=== PATIENT | female | born 1955 | race Caucasian/White ===

== ENCOUNTER 2021-04-28 19:59 | Inpatient (IN) | payer MEDICARE, OTHER ==
[2021-04-28] MEDS ORDERED: SODIUM CHLORIDE 0.9% 1,000 ML IV STA (21:40)
[2021-04-28] MEDS ORDERED: PROCHLORPERAZINE INJ 10 MG/2 ML VIAL IVP STA (21:40)
[2021-04-28] MEDS ORDERED: ACETAMINOPHEN TAB 500 MG TAB PO STA (21:40)
[2021-04-28] MEDS ORDERED: DEXAMETHASONE SOD PHOSPHATE 10 MG/ML 1 ML VIAL IVP STA (21:40)
[2021-04-28] MEDS ORDERED: KETOROLAC 15 MG/ML 1 ML VIAL IVP STA (21:40)
[2021-04-28] MEDS ORDERED: SODIUM CHLORIDE 0.9% 500 ML 500 ML IV STA (21:40)
--- NOTE | 2021-04-28 21:42 | ED ---
Recheck HPI - General Chief Complaint: Weakness Stated Complaint: covid+ Time Seen by Provider: 04/28/21 21:09 Source: patient, RN notes reviewed, old records reviewed Mode of arrival: ambulatory Limitations: no limitations - History of Present Illness Initial Comments: This is a 65-year-old female to the emergency department for evaluation, patient [place] of no chest pains here for evaluation regards to weakness nausea vomiting diarrhea positive coronavirus. Patient states she is continuously getting worse, unable to get out of bed unable to complete activities of daily living. Significant shortness of breath especially with activity. Patient has otherwise no recent travel history MD Complaint: abnormal lab (positive for coronavirus) -: days(s) (6) Returns Today for: Called Because of Abnormal Lab/Test, persistent/worsening pain related to initial visit Symptoms Since Prior Visit: worsening pain, fever Context: other (worsening symptoms) Associated Symptoms: fever, chills, chest pain, shortness of breath, malaise, nausea, abdominal pain Treatments Prior to Arrival: other (none) - Related Data Home Medications Medication Instructions Recorded Confirmed ondansetron HCL [Zofran] 8 mg PO TID PRN 04/28/21 04/28/21 Allergies Allergy/AdvReac Type Severity Reaction Status Date / Time bupropion [From Wellbutrin] Allergy Rash/Hives Verified 04/28/21 22:45 promethazine HCl Allergy Hallucinati Verified 04/28/21 22:45 [From Phenergan] ons codeine phosphate AdvReac Itching Verified 04/28/21 22:45 [From Tylenol-Codeine #3] Review of Systems ROS Statement: Those systems with pertinent positive or pertinent negative responses have been documented in the HPI. ROS Other: All systems not noted in ROS Statement are negative. Past Medical History Past Medical History: Cancer, Osteoarthritis (OA) Additional Past Medical History / Comment(s): MIGRAINE HEADACHE,RIGHT KIDNEY CANCER,bronchitis, states "knee gave out and fell face down on cement-face healed",incontinet urine, Graves diease History of Any Multi-Drug Resistant Organisms: None Reported Past Surgical History: Bladder Surgery, Hysterectomy, Orthopedic Surgery Additional Past Surgical History / Comment(s): D&C, LAPAROSCOPIC EXAM, arthroscopic knee surg., right nephrectomy.bladder susp with later repair, 5 16-16 TOTAL RT KNEE. Past Anesthesia/Blood Transfusion Reactions: Previous Problems w/ Anesthesia Additional Past Anesthesia/Blood Transfusion Reaction / Comment(s): states "very low BP with anesthesia and has a hard time waking up" Past Psychological History: No Psychological Hx Reported Smoking Status: Former smoker Past Alcohol Use History: Rare Past Drug Use History: None Reported - Past Family History Sister(s) Additional Family Medical History / Comment(s): MS Mother Family Medical History: Cancer Father Family Medical History: Cancer General Exam General appearance: alert, anxious, lethargic, in distress Head exam: Present: atraumatic, normocephalic, normal inspection Eye exam: Present: normal appearance, PERRL, EOMI. Absent: scleral icterus, conjunctival injection, periorbital swelling ENT exam: Present: normal exam, mucous membranes moist Neck exam: Present: normal inspection. Absent: tenderness, meningismus, lymphadenopathy Respiratory exam: Present: normal lung sounds bilaterally. Absent: respiratory distress, wheezes, rales, rhonchi, stridor Cardiovascular Exam: Present: regular rate, normal rhythm, normal heart sounds. Absent: systolic murmur, diastolic murmur, rubs, gallop, clicks GI/Abdominal exam: Present: soft, normal bowel sounds. Absent: distended, tenderness, guarding, rebound, rigid Extremities exam: Present: normal inspection, full ROM, normal capillary refill. Absent: tenderness, pedal edema, joint swelling, calf tenderness Back exam: Present: normal inspection Neurological exam: Present: alert, oriented X3, CN II-XII intact Psychiatric exam: Present: normal affect, normal mood Skin exam: Present: warm, dry, intact, normal color. Absent: rash Course Vital Signs 04/28/21 04/28/21 20:41 21:30 Temperature 101.5 F H Pulse Rate 91 Respiratory 15 18 Rate Blood Pressure 102/69 O2 Sat by Pulse 93 L Oximetry - Reevaluation(s) Reevaluation #1: 04/28/21 23:51 medical record is reviewed Reevaluation #2: 04/28/21 23:52 patient has no improvement in symptoms here in the ER Reevaluation #3: 04/28/21 23:52 patient be admitted for further supportive care - Consultations Consultation #1: spoke w Dr Borges is ok for admission Medical Decision Making - Medical Decision Making 65 female to be admitted for worsening coronavirus symptoms. Shortness of breath hypoxia here in the ER in the mid to upper 80s. At rest, patient has no chest pain, and has increased nausea vomiting and diarrhea - Lab Data Result diagrams: 04/28/21 22:16 04/28/21 22:16 Lab Results 04/28/21 04/28/21 04/28/21 Range/Units 22:16 22:16 22:16 WBC 6.3 (3.8-10.6) k/uL RBC 4.48 (3.80-5.40) m/uL Hgb 15.0 (11.4-16.0) gm/dL Hct 43.1 (34.0-46.0) % MCV 96.1 (80.0-100.0) fL MCH 33.5 (25.0-35.0) pg MCHC 34.8 (31.0-37.0) g/dL RDW 13.5 (11.5-15.5) % Plt Count 175 (150-450) k/uL MPV 8.6 Neutrophils % 85 % Lymphocytes % 9 % Monocytes % 4 % Eosinophils % 0 % Basophils % 0 % Neutrophils # 5.3 (1.3-7.7) k/uL Lymphocytes # 0.6 L (1.0-4.8) k/uL Monocytes # 0.3 (0-1.0) k/uL Eosinophils # 0.0 (0-0.7) k/uL Basophils # 0.0 (0-0.2) k/uL PT 10.1 (9.0-12.0) sec INR 0.9 (<1.2) APTT 26.3 (22.0-30.0) sec Sodium 132 L (137-145) mmol/L Potassium 3.7 (3.5-5.1) mmol/L Chloride 98 (98-107) mmol/L Carbon Dioxide 22 (22-30) mmol/L Anion Gap 12 mmol/L BUN 14 (7-17) mg/dL Creatinine 1.01 (0.52-1.04) mg/dL Est GFR (CKD-EPI)AfAm 69 (>60 ml/min/1.73 sqM) Est GFR (CKD-EPI)NonAf 60 (>60 ml/min/1.73 sqM) Glucose 98 (74-99) mg/dL Calcium 8.7 (8.4-10.2) mg/dL Magnesium 1.9 (1.6-2.3) mg/dL Total Bilirubin 0.6 (0.2-1.3) mg/dL AST 58 H (14-36) U/L ALT 36 H (4-34) U/L Alkaline Phosphatase 73 (38-126) U/L Lactate Dehydrogenase 791 H (313-618) U/L C-Reactive Protein 5.9 H (<1.0) mg/dL Total Protein 6.7 (6.3-8.2) g/dL Albumin 3.8 (3.5-5.0) g/dL - EKG Data -: EKG Interpreted by Me (EKG shows sinus rhythm 84, CA 160 QRS 92 QTC 427) - Radiology Data Radiology results: report reviewed (CXR is pending, COVID), image reviewed Disposition Clinical Impression: Coronavirus infection, COVID-19, Hypoxia, Dehydration, Weakness, Nausea and vo miting Disposition: ADMITTED IP TO THIS [facility] Condition: Fair Is patient prescribed a controlled substance at d/c from ED?: No Referrals: Cyndie Vee DO [Primary Care Provider] - 1-2 days
[2021-04-28 22:36] LABS: Basophils % (A) 0 %; Eosinophils % (A) 0 %; HCT 43.1 % (34.0-46.0); Lymphocytes # (A) 0.6 k/uL (1.0-4.8); Lymphocytes % (A) 9 %; MCH 33.5 pg (25.0-35.0); MCHC 34.8 g/dL (31.0-37.0); MCV 96.1 fL (80.0-100.0); Mean Platelet Volume 8.6; Monocytes # (A) 0.3 k/uL (0-1.0); Monocytes % (A) 4 %; Neutrophils # (A) 5.3 k/uL (1.3-7.7); Neutrophils % (A) 85 %; Platelet Count 175 k/uL (150-450); RBC 4.48 m/uL (3.80-5.40); RDW 13.5 % (11.5-15.5); WBC 6.3 k/uL (3.8-10.6)
[2021-04-28 22:56] LABS: Albumin 3.8 g/dL (3.5-5.0); C Reactive Protein 5.9 mg/dL (<1.0); Calcium 8.7 mg/dL (8.4-10.2); INR 0.9 (<1.2); Magnesium 1.9 mg/dL (1.6-2.3); Partial Thromboplastin Time 26.3 sec (22.0-30.0); Potassium 3.7 mmol/L (3.5-5.1); Prothrombin Time 10.1 sec (9.0-12.0); Total Bilirubin 0.6 mg/dL (0.2-1.3); Total Protein 6.7 g/dL (6.3-8.2)
[2021-04-28] MEDS: SODIUM CHLORIDE 0.9% 1,000 ML IV SCH (23:47)
--- NOTE | 2021-04-29 00:19 | XR ---
EXAMINATION TYPE: XR chest 1V portable DATE OF EXAM: 04/28/2021 COMPARISON: NONE HISTORY: Cough TECHNIQUE: Single view FINDINGS: There is some mild airspace infiltrate in the mid and lower lung field in the left lower lo be. There is also a small somewhat rounded 3 cm infiltrate right lower lobe. Heart and mediastinum ar e normal. There is no pleural effusion. There is no heart failure. There are chest leads. IMPRESSION: There are small patches of bilateral pneumonia. Normal heart.
[2021-04-29] MEDS ORDERED: MORPHINE SULFATE 4 MG/ML SYRINGE IV PRN (00:23)
[2021-04-29] MEDS ORDERED: NALOXONE 0.4 MG/ML 1 ML VIAL IV PRN (00:23)
[2021-04-29] MEDS ORDERED: IBUPROFEN 400 MG TAB PO PRN (00:23)
[2021-04-29] MEDS ORDERED: ACETAMINOPHEN TAB 325 MG TAB PO PRN (00:23)
[2021-04-29] MEDS: SODIUM CHLORIDE 0.9% 1,000 ML IV SCH ×3 (06:34→20:50)
[2021-04-29] MEDS: ENOXAPARIN 40 MG/0.4 ML SYRINGE SQ SCH (09:20)
[2021-04-29] MEDS ORDERED: LOPERAMIDE 2 MG CAP PO PRN (12:12)
[2021-04-29] MEDS ORDERED: MELATONIN 3 MG TABLET PO PRN (12:12)
[2021-04-29] MEDS ORDERED: LACTULOSE 20 GM/30 ML CUP PO PRN (12:12)
[2021-04-29] MEDS ORDERED: LORazepam 0.5 MG TAB PO PRN (12:12)
[2021-04-29] MEDS ORDERED: CALCIUM CARBONATE 500 MG CHEWABLE PO PRN (12:12)
[2021-04-29] MEDS: ASCORBIC ACID 500 MG TAB PO SCH (12:30)
[2021-04-29] MEDS: CHOLECALCIFEROL 125 MCG (5000 IU) TABLET PO SCH (12:30)
[2021-04-29] MEDS: ZINC SULFATE 220 MG CAP PO SCH (12:31)
--- NOTE | 2021-04-29 19:55 | P.HPIM ---
History of Present Illness H&P Date: 04/29/21 Chief Complaint: Weak and tired This is a pleasant 65-year-old patient who follows with Dr. Birch. Chronic stable medical condition includes osteoarthritis, migraines, right kidney cancer with nephrectomy, urinary incontinence, Graves' disease. Patient started off with diarrhea last Saturday. Averaging about 4-5 per day. Appetite poor. Had some headache. No loss of smell or taste. She progressively got worse. Not even able to get out of bed. Short of breath with activity. Tested positive for COVID-19. No fever no chills. Tired rundown Review of systems: GEN.: Tired decreased appetite EYES: None HEENT: None NECK: None RESPIRATORY: [Short of breath with activity CARDIOVASCULAR: None GASTROINTESTINAL: As above GENITOURINARY: None MUSCULOSKELETAL: Joint pains LYMPHATICS: None HEMATOLOGICAL: None PSYCHIATRY: None NEUROLOGICAL: None INVESTIGATIONS, reviewed in the clinical context: White count 6.3 hemoglobin 15 platelets 175 decreased lymphocyte sodium 132 potassium 3.7 creatinine 1.01 AST 58 ALT 36 CRP 5.9 EKG tracing personally reviewed by me-normal sinus rhythm. ST segment depression. Chest x-ray film personally reviewed by me-peripheral infiltrate Assessment and plan: -Acute COVID 19 pneumonitis symptoms starting about 7 days ago. Vitamin C, vitamin D, zinc. Subcu Lovenox -Mild hypoxic respiratory failure. Patient's pulse ox did drop down to 92% Dexamethasone 6 mg a day. 2 L nasal cannula -Acute medical asthenia from diarrhea IV fluids -Acute diarrhea secondary to COVID-19 Imodium when necessary. Metamucil -Hyponatremia from decreased solute intake Encourage oral intake. Add Ensure -Primary osteoarthritis Tylenol as needed -Chronic urinary stress incontinence -Right nephrectomy with a history of kidney cancer IV fluids. Dexamethasone. Subcu Lovenox. Metamucil. And showed. Care was discussed with the patient and questions answered. Oxygen supplementation Given the complexity and severity of patient's condition expect the patient to be in the hospital at least for 2 overnights Past Medical History Past Medical History: Cancer, Osteoarthritis (OA) Additional Past Medical History / Comment(s): MIGRAINE HEADACHE,RIGHT KIDNEY CANCER,bronchitis, states "knee gave out and fell face down on cement-face healed",incontinet urine, Graves diease History of Any Multi-Drug Resistant Organisms: None Reported Past Surgical History: Bladder Surgery, Hysterectomy, Orthopedic Surgery Additional Past Surgical History / Comment(s): D&C, LAPAROSCOPIC EXAM, arthroscopic knee surg., right nephrectomy.bladder susp with later repair, 5-16-16 TOTAL RT KNEE. Past Anesthesia/Blood Transfusion Reactions: Previous Problems w/ Anesthesia Additional Past Anesthesia/Blood Transfusion Reaction / Comment(s): states "very low BP with anesthesia and has a hard time waking up" Past Psychological History: No Psychological Hx Reported Smoking Status: Never smoker Past Alcohol Use History: Rare Additional Past Alcohol Use History / Comment(s): STATED STARTED SMOKING AT AGE 13,STOPPED FROM 1981 TOLL 2009 THEN RESTARTED ,SMOKED 1PPD. Past Drug Use History: None Reported - Past Family History Sister(s) Additional Family Medical History / Comment(s): MS Mother Family Medical History: Cancer Father Family Medical History: Cancer Medications and Allergies Home Medications Medication Instructions Recorded Confirmed Type ondansetron HCL [Zofran] 8 mg PO TID PRN 04/28/21 04/28/21 History Allergies Allergy/AdvReac Type Severity Reaction Status Date / Time bupropion [From Wellbutrin] Allergy Rash/Hives Verified 04/28/21 22:45 promethazine HCl Allergy Hallucinati Verified 04/28/21 22:45 [From Phenergan] ons codeine phosphate AdvReac Itching Verified 04/28/21 22:45 [From Tylenol-Codeine #3] Physical Exam Vitals: Vital Signs Temp Pulse Pulse Resp BP BP Pulse Ox 04/29/21 08:59 97.5 F L 53 L 17 98/59 92 L 04/29/21 06:00 52 L 17 101/67 95 04/29/21 01:44 95 04/29/21 01:18 98 F 78 16 114/70 95 04/28/21 21:30 18 04/28/21 20:41 101.5 F H 91 15 102/69 93 L Intake and Output 04/28/21 04/29/21 04/29/21 22:59 06:59 14:59 Intake Total 650 Balance 650 Intake: Intake, IV Titration 650 Amount Sodium Chloride 0.9% 1, 650 000 ml @ 130 mls/hr IV . Q7H42M SINDI Rx#:[id number] Other: # Voids 2 Weight 84.822 kg 84.822 kg Results CBC & Chem 7: 04/28/21 22:16 04/28/21 22:16 Labs: Abnormal Lab Results - Last 24 Hours (Table) 04/28/21 04/28/21 Range/Units 22:16 22:16 Lymphocytes # 0.6 L (1.0-4.8) k/uL Sodium 132 L (137-145) mmol/L AST 58 H (14-36) U/L ALT 36 H (4-34) U/L Lactate Dehydrogenase 791 H (313-618) U/L C-Reactive Protein 5.9 H (<1.0) mg/dL Thrombosis Risk Factor Assmnt - Choose All That Apply Any of the Below Risk Factors Present?: Yes Each Factor Represents 1 point: Obesity (BMI >25) Other Risk Factors: Yes Each Risk Factor Represents 2 Points: Age 61-74 years Other congenital or acquired thrombophilia - If yes, enter type in comment: No Thrombosis Risk Factor Assessment Total Risk Factor Score: 3 Thrombosis Risk Factor Assessment Level: Moderate Risk
[2021-04-29] MEDS: PSYLLIUM HUSK 100% 6 GM PACKET PO SCH (21:00)
[2021-04-30] MEDS: SODIUM CHLORIDE 0.9% 1,000 ML IV SCH ×3 (04:33→17:35)
[2021-04-30] MEDS: PSYLLIUM HUSK 100% 6 GM PACKET PO SCH (09:15)
[2021-04-30] MEDS: CHOLECALCIFEROL 125 MCG (5000 IU) TABLET PO SCH (09:15)
[2021-04-30] MEDS: ZINC SULFATE 220 MG CAP PO SCH (09:15)
[2021-04-30] MEDS: ASCORBIC ACID 500 MG TAB PO SCH (09:15)
[2021-04-30] MEDS: dexAMETHasone 2 MG TAB PO SCH (09:15)
[2021-04-30] MEDS: ENOXAPARIN 40 MG/0.4 ML SYRINGE SQ SCH (09:15)
[2021-04-30 09:20] LABS: ALT 26 U/L (4-34); AST 43 U/L (14-36); African American GFR (CKD) 88 (>60 ml/min/1.73 sqM); Albumin 2.9 g/dL (3.5-5.0); Albumin/Globulin Ratio 1.1; Alkaline Phosphatase 54 U/L (38-126); Anion Gap 5 mmol/L; Blood Urea Nitrogen 12 mg/dL (7-17); C Reactive Protein 2.7 mg/dL (<1.0); Calcium 8.1 mg/dL (8.4-10.2); Carbon Dioxide 22 mmol/L (22-30); Chloride 113 mmol/L (98-107); Globulin 2.6 g/dL; Glucose 97 mg/dL (74-99); Non-African American GFR(CKD) 77 (>60 ml/min/1.73 sqM); Potassium 3.8 mmol/L (3.5-5.1); Sodium 140 mmol/L (137-145); Total Bilirubin 0.4 mg/dL (0.2-1.3); Total Protein 5.5 g/dL (6.3-8.2)
[2021-04-30 10:56] LABS: Basophils # (A) 0.02 X 10*3/uL (0.00-0.10); Basophils % (A) 0.2 %; Eosinophils # (A) 0 X 10*3/uL (0.04-0.35); Eosinophils % (A) 0 %; HCT 39.5 % (37.2-46.3); HGB 13.1 g/dL (12.0-15.0); Lymphocytes # (A) 1.34 X 10*3/uL (0.90-5.00); Lymphocytes % (A) 12.7 %; MCH 31.6 pg (27.0-32.0); MCHC 33.2 g/dL (32.0-37.0); MCV 95.2 fL (80.0-97.0); Mean Platelet Volume 11.1 fL (9.5-12.2); Monocytes # (A) 0.42 X 10*3/uL (0.20-1.00); Neutrophils # (A) 8.77 X 10*3/uL (1.80-7.70); Neutrophils % (A) 82.7 %; Platelet Count 222 X 10*3/uL (140-440); RBC 4.15 X 10*6/uL (4.10-5.20); RDW 13.5 % (11.5-14.5); WBC 10.59 X 10*3/uL (4.50-10.00)
--- NOTE | 2021-04-30 16:38 | P.PN ---
Progress Note - Text Progress Note Date: 04/30/21 Chief Complaint: Weak and tired This is a pleasant 65-year-old patient who follows with Dr. Birch. Chronic stable medical condition includes osteoarthritis, migraines, right kidney cancer with nephrectomy, urinary incontinence, Graves' disease. Patient started off with diarrhea last Saturday. Averaging about 4-5 per day. Appetite poor. Had some headache. No loss of smell or taste. She progressively got worse. Not even able to get out of bed. Short of breath with activity. Tested positive for COVID-19. No fever no chills. Tired rundown April 30: Tired. Had about 3-4 BMs since last 24 hours. Has been having some soups. On 3 L of nasal cannula. Did sit up in a chair. Review of systems: Was done for constitutional, cardiovascular, GI, pulmonary. relevant finding as above Active Medications Acetaminophen (Acetaminophen Tab 325 Mg Tab) 650 mg PO Q6HR PRN PRN Reason: Mild Pain or Fever > 100.5 Last Admin: 04/29/21 20:06 Dose: 650 mg Documented by: Ascorbic Acid (Ascorbic Acid 500 Mg Tab) 1,000 mg PO DAILY [facility] Last Admin: 04/30/21 09:15 Dose: 1,000 mg Documented by: Calcium Carbonate/Glycine (Calcium Carbonate 500 Mg Chewable) 1,000 mg PO Q4HR PRN PRN Reason: Dyspepsia Cholecalciferol (Cholecalciferol 125 Mcg (5000 Iu) Tablet) 125 mcg PO DAILY [facility] Last Admin: 04/30/21 09:15 Dose: 125 mcg Documented by: Dexamethasone (Dexamethasone 2 Mg Tab) 6 mg PO DAILY [facility] Last Admin: 04/30/21 09:15 Dose: 6 mg Documented by: Enoxaparin Sodium (Enoxaparin 40 Mg/0.4 Ml Syringe) 40 mg SQ DAILY [facility] Last Admin: 04/30/21 09:15 Dose: 40 mg Documented by: Sodium Chloride (Saline 0.9%) 1,000 mls @ 130 mls/hr IV .Q7H42M [facility] Last Admin: 04/30/21 09:15 Dose: 130 mls/hr Documented by: Lactulose (Lactulose 20 Gm/30 Ml Cup) 20 gm PO DAILY PRN PRN Reason: Constipation Loperamide HCl (Loperamide 2 Mg Cap) 2 mg PO Q2HR PRN PRN Reason: Loose Stool Lorazepam (Lorazepam 0.5 Mg Tab) 0.5 mg PO Q6HR PRN PRN Reason: Anxiety Melatonin (Melatonin 3 Mg Tablet) 3 mg PO HS PRN PRN Reason: Insomnia Naloxone HCl (Naloxone 0.4 Mg/Ml 1 Ml Vial) 0.2 mg IV Q2M PRN PRN Reason: Opioid Reversal Ondansetron HCl (Ondansetron 4 Mg/2 Ml Vial) 4 mg IVP Q8HR PRN PRN Reason: Nausea And Vomiting Psyllium Hydrophilic Mucilloid (Psyllium Husk 100% 6 Gm Packet) 6 gm PO BID [facility] Last Admin: 04/30/21 09:15 Dose: Not Given Documented by: Zinc Sulfate (Zinc Sulfate 220 Mg Cap) 220 mg PO DAILY [facility] Last Admin: 04/30/21 09:15 Dose: 220 mg Documented by: INVESTIGATIONS, reviewed in the clinical context: April 30: White count 10.5 hemoglobin 13.1 potassium 3.8 creatinine 0.82 CRP 2.7 d-dimer 0.49 White count 6.3 hemoglobin 15 platelets 175 decreased lymphocyte sodium 132 potassium 3.7 creatinine 1.01 AST 58 ALT 36 CRP 5.9 EKG tracing personally reviewed by me-normal sinus rhythm. ST segment depressi on. Chest x-ray film personally reviewed by me-peripheral infiltrate Assessment and plan: -Acute COVID 19 pneumonitis symptoms starting about 7 days ago. Vitamin C, vitamin D, zinc. Subcu Lovenox -Mild hypoxic respiratory failure. Patient's pulse ox did drop down to 92%: Worsening Dexamethasone 6 mg a day. 3 L nasal cannula -Acute medical asthenia from diarrhea: Slow to respond IV fluids -Acute diarrhea secondary to COVID-19: Slow to respond Imodium when necessary. Metamucil -Hyponatremia from decreased solute intake: Better Encourage oral intake. Add Ensure -Primary osteoarthritis Tylenol as needed -Chronic urinary stress incontinence -Right nephrectomy with a history of kidney cancer IV fluids. Dexamethasone. Subcu Lovenox. Metamucil. Increase oxygen to 3 L. Care was discussed with the patient and questions answered. Up in chair as tolerated.
[2021-05-01] MEDS: PSYLLIUM HUSK 100% 6 GM PACKET PO SCH ×2 (07:00→08:22)
[2021-05-01 08:07] LABS: African American GFR (CKD) 88 (>60 ml/min/1.73 sqM); Anion Gap 7 mmol/L; Blood Urea Nitrogen 10 mg/dL (7-17); C Reactive Protein 3.9 mg/dL (<1.0); Calcium 8.5 mg/dL (8.4-10.2); Carbon Dioxide 25 mmol/L (22-30); Chloride 108 mmol/L (98-107); Glucose 104 mg/dL (74-99); Non-African American GFR(CKD) 77 (>60 ml/min/1.73 sqM); Potassium 4.3 mmol/L (3.5-5.1); Sodium 140 mmol/L (137-145)
[2021-05-01] MEDS: ASCORBIC ACID 500 MG TAB PO SCH (08:20)
[2021-05-01] MEDS: CHOLECALCIFEROL 125 MCG (5000 IU) TABLET PO SCH (08:20)
[2021-05-01] MEDS: dexAMETHasone 2 MG TAB PO SCH (08:21)
[2021-05-01] MEDS: ENOXAPARIN 40 MG/0.4 ML SYRINGE SQ SCH (08:21)
[2021-05-01] MEDS: ZINC SULFATE 220 MG CAP PO SCH (08:21)
[2021-05-01] MEDS: SODIUM CHLORIDE 0.9% 1,000 ML IV SCH ×2 (08:22→22:53)
[2021-05-01] MEDS: ONDANSETRON 4 MG/2 ML VIAL IVP PRN (21:11)
--- NOTE | 2021-05-01 21:47 | P.PN ---
Progress Note - Text Progress Note Date: 05/01/21 Chief Complaint: Weak and tired This is a pleasant 65-year-old patient who follows with Dr. Birch. Chronic stable medical condition includes osteoarthritis, migraines, right kidney cancer with nephrectomy, urinary incontinence, Graves' disease. Patient started off with diarrhea last Saturday. Averaging about 4-5 per day. Appetite poor. Had some headache. No loss of smell or taste. She progressively got worse. Not even able to get out of bed. Short of breath with activity. Tested positive for COVID-19. No fever no chills. Tired rundown April 30: Tired. Had about 3-4 BMs since last 24 hours. Has been having some soups. On 3 L of nasal cannula. Did sit up in a chair. May 01: Patient earlier admitted to be sort of chest pain. She went to the bathroom without using her oxygen. [place] better after oxygen was replaced. I ordered EKG, troponin I, 2-D echo and cardiology consultation. No further episode. Eating about 25-50%. IV fluids. On 4 L of nasal cannula. Diarrhea resolved Review of systems: Was done for constitutional, cardiovascular, GI, pulmonary. relevant finding as above Active Medications Acetaminophen (Acetaminophen Tab 325 Mg Tab) 650 mg PO Q6HR PRN PRN Reason: Mild Pain or Fever > 100.5 Last Admin: 04/29/21 20:06 Dose: 650 mg Documented by: Ascorbic Acid (Ascorbic Acid 500 Mg Tab) 1,000 mg PO DAILY [facility] Last Admin: 05/01/21 08:20 Dose: 1,000 mg Documented by: Calcium Carbonate/Glycine (Calcium Carbonate 500 Mg Chewable) 1,000 mg PO Q4HR PRN PRN Reason: Dyspepsia Cholecalciferol (Cholecalciferol 125 Mcg (5000 Iu) Tablet) 125 mcg PO DAILY [facility] Last Admin: 05/01/21 08:20 Dose: 125 mcg Documented by: Dexamethasone (Dexamethasone 2 Mg Tab) 6 mg PO DAILY [facility] Last Admin: 05/01/21 08:21 Dose: 6 mg Documented by: Enoxaparin Sodium (Enoxaparin 40 Mg/0.4 Ml Syringe) 40 mg SQ DAILY [facility] Last Admin: 05/01/21 08:21 Dose: 40 mg Documented by: Sodium Chloride (Saline 0.9%) 1,000 mls @ 75 mls/hr IV .[id number] [facility] Last Admin: 05/01/21 08:22 Dose: 75 mls/hr Documented by: Lactulose (Lactulose 20 Gm/30 Ml Cup) 20 gm PO DAILY PRN PRN Reason: Constipation Loperamide HCl (Loperamide 2 Mg Cap) 2 mg PO Q2HR PRN PRN Reason: Loose Stool Lorazepam (Lorazepam 0.5 Mg Tab) 0.5 mg PO Q6HR PRN PRN Reason: Anxiety Melatonin (Melatonin 3 Mg Tablet) 3 mg PO HS PRN PRN Reason: Insomnia Naloxone HCl (Naloxone 0.4 Mg/Ml 1 Ml Vial) 0.2 mg IV Q2M PRN PRN Reason: Opioid Reversal Ondansetron HCl (Ondansetron 4 Mg/2 Ml Vial) 4 mg IVP Q8HR PRN PRN Reason: Nausea And Vomiting Last Admin: 05/01/21 21:11 Dose: 4 mg Documented by: Psyllium Hydrophilic Mucilloid (Psyllium Husk 100% 6 Gm Packet) 6 gm PO DAILY [facility] Zinc Sulfate (Zinc Sulfate 220 Mg Cap) 220 mg PO DAILY [facility] Last Admin: 05/01/21 08:21 Dose: 220 mg Documented by: On examination: VITAL SIGNS: [97.7, 64, 19, 111/73, 94% on 4 L] GENERAL APPEARANCE: Reclining, tired. RESPIRATORY: Respiratory effort increased.. PSYCHIATRY: Alert and oriented x3. Mood and affect normal. NEUROLOGICAL: Cranial nerves grossly intact. Moving all 4 limbs Rest of exam per nursing INVESTIGATIONS, reviewed in the clinical context: May 01: D-dimer 0.51 potassium 4.3 creatinine 0.82 CRP 3.9 April 30: White count 10.5 hemoglobin 13.1 potassium 3.8 creatinine 0.82 CRP 2.7 d-dimer 0.49 White count 6.3 hemoglobin 15 platelets 175 decreased lymphocyte sodium 132 potassium 3.7 creatinine 1.01 AST 58 ALT 36 CRP 5.9 EKG tracing personally reviewed by me-normal sinus rhythm. ST segment depression. Chest x-ray film personally reviewed by me-peripheral infiltrate Assessment and plan: -Acute COVID 19 pneumonitis symptoms starting about 7 days right admission. Vitamin C, vitamin D, zinc. Subcu Lovenox -Mild hypoxic respiratory failure. Patient's pulse ox did drop down to 92%: Worsening Dexamethasone 6 mg a day. 4 L nasal cannula. Consult pulmonary -Acute medical asthenia from diarrhea: Slow to respond IV fluids -Acute diarrhea secondary to COVID-19: Improved Imodium when necessary. Metamucil -Hyponatremia from decreased solute intake: Better Encourage oral intake. Add Ensure -Primary osteoarthritis Tylenol as needed -Chronic urinary stress incontinence -Right nephrectomy with a history of kidney cancer IV fluids. Dexamethasone. Subcu Lovenox. Metamucil. Oxygen 4 L. Discussed with patient. Consult pulmonary. Repeat x-ray in the morning. Follow labs
--- NOTE | 2021-05-02 07:32 | XR ---
EXAMINATION TYPE: XR chest 1V portable DATE OF EXAM: 05/02/2021 CLINICAL HISTORY: Difficulty breathing and covid progress study. TECHNIQUE: Single AP portable upright view of the chest is obtained. COMPARISON: Chest x-ray from 4 days earlier FINDINGS: Bilateral multifocal increased opacities greatest in the periphery redemonstrated. Cardiac silhouette size is stable and mildly enlarged. Osseous structures are intact. IMPRESSION: Persistent bilateral multifocal increased opacities consistent with covid-19 infection ar e redemonstrated. No significant change from 4 days earlier.
[2021-05-02] MEDS: ONDANSETRON 4 MG/2 ML VIAL IVP PRN (09:21)
[2021-05-02] MEDS: ASCORBIC ACID 500 MG TAB PO SCH (09:23)
[2021-05-02] MEDS: ENOXAPARIN 40 MG/0.4 ML SYRINGE SQ SCH (09:23)
[2021-05-02] MEDS: ZINC SULFATE 220 MG CAP PO SCH (09:23)
[2021-05-02] MEDS: CHOLECALCIFEROL 125 MCG (5000 IU) TABLET PO SCH (09:23)
[2021-05-02] MEDS: dexAMETHasone 2 MG TAB PO SCH (09:23)
[2021-05-02] MEDS: PSYLLIUM HUSK 100% 6 GM PACKET PO SCH (09:24)
[2021-05-02] MEDS: SODIUM CHLORIDE 0.9% 1,000 ML IV SCH (09:29)
--- NOTE | 2021-05-02 10:00 | ECHOF ---
Referral Reason:episode of chest pain overnight MEASUREMENTS -------- HEIGHT: 170.2 cm WEIGHT: 84.8 kg BP: 115/76 IVSd: 1.0 cm (0.6 - 1.1) LVIDd: 4.1 cm (3.9 - 5.3) LVPWd: 1.2 cm (0.6 - 1.1) IVSs: 1.1 cm LVIDs: 2.6 cm LVPWs: 1.6 cm RAP: 5.00 mmHg RVSP: 32.44 mmHg FINDINGS -------- Sinus rhythm. The left ventricular size is normal. Left ventricular wall thickness is normal. Overall left vent ricular systolic function is normal with, an EF between 55 - 60 %. [id number] mitral regurgitation is present. Moderate tricuspid regurgitation present. There is borderline pulmonary artery hypertension. The right ventricular systolic pressure, as measured by Doppler, is 32.44mmHg. There is no pericardial effusion. CONCLUSIONS -------- 1. The left ventricular size is normal. 2. Left ventricular wall thickness is normal. 3. Overall left ventricular systolic function is normal with, an EF between 55 - 60 %. 4. [id number] mitral regurgitation is present. 5. Moderate tricuspid regurgitation present. 6. There is borderline pulmonary artery hypertension. 7. The right ventricular systolic pressure, as measured by Doppler, is 32.44mmHg. MED CARE MANAGER: [facility]
--- NOTE | 2021-05-02 12:05 | P.CRDCN ---
History of Present Illness Consult date: 05/02/21 History of present illness: CHIEF COMPLAINT: Chest pain HISTORY OF PRESENT ILLNESS: This is a 65-year-old female with a past medical history significant for osteoarthritis, migraines, kidney cancer, and bronchitis. Patient does not follow with a mechanical engineer. We have been asked to see the patient in consultation for chest pain. Patient initially presented to the hospital secondary to weakness nausea and vomiting and diarrhea. The patient was found to be positive for Covid. The patient had an episode of chest pain during her hospitalization. Troponins were obtained and were negative. Echocardiogram obtained revealed ejection fraction 55-60%, mild to moderate mitral regurgitation, moderate tricuspid regurgitation, and borderline pulmonary artery hypertension. DIAGNOSTICS: EKG reveals sinus mechanism with diffuse ST depression. No previous EKG to compare. Chest xray persistent bilateral multifocal increased opacities consistent with Covid 19 infection are redemonstrated. No significant change from 4 days earlier. Laboratory data: WBC 10.59. Hemoglobin 13.1. Platelet count 222. Sodium 140. Potassium 4.3. BUN 10. Creatinine 0.82. Troponin negative 3. Current home cardiac medications include none REVIEW OF SYSTEMS: Thorough review of systems not completed secondary to limited evaluation/examination due to Covid19 PHYSICAL EXAM: Thorough physical exam not completed secondary to limited evaluation/examination due to Covid19 ASSESSMENT: Covid 19 Acute hypoxic respiratory failure Chest pain, troponin negative x 3 Osteoarthritis Migraines History of kidney cancer History of bronchitis PLAN: An acute coronary event has been ruled out Begin aspirin 81mg daily Patient may follow up outpatient when she has recovered from Covid for possible stress testing No further inpatient recommendations from a cardiac standpoint. We will sign off. Please reconsult if needed. Nurse practitioner note has been reviewed by physician. Signing provider agrees with the documented findings, assessment, and plan of care. Past Medical History Past Medical History: Cancer, Osteoarthritis (OA) Additional Past Medical History / Comment(s): MIGRAINE HEADACHE,RIGHT KIDNEY CANCER,bronchitis, states "knee gave out and fell face down on cement-face healed",incontinet urine, Graves diease History of Any Multi-Drug Resistant Organisms: None Reported Past Surgical History: Bladder Surgery, Hysterectomy, Orthopedic Surgery Additional Past Surgical History / Comment(s): D&C, LAPAROSCOPIC EXAM, arthroscopic knee surg., right nephrectomy.bladder susp with later repair, 09-05-15 TOTAL RT KNEE. Past Anesthesia/Blood Transfusion Reactions: Previous Problems w/ Anesthesia Additional Past Anesthesia/Blood Transfusion Reaction / Comment(s): states "very low BP with anesthesia and has a hard time waking up" Past Psychological History: No Psychological Hx Reported Smoking Status: Never smoker Past Alcohol Use History: Rare Additional Past Alcohol Use History / Comment(s): STATED STARTED SMOKING AT AGE 13,STOPPED FROM 1981 TOLL 2009 THEN RESTARTED ,SMOKED 1PPD. Past Drug Use History: None Reported - Past Family History Sister(s) Additional Family Medical History / Comment(s): MS Mother Family Medical History: Cancer Father Family Medical History: Cancer Medications and Allergies Home Medications Medication Instructions Recorded Confirmed Type ondansetron HCL [Zofran] 8 mg PO TID PRN 04/28/21 04/28/21 History Allergies Allergy/AdvReac Type Severity Reaction Status Date / Time bupropion [From Wellbutrin] Allergy Rash/Hives Verified 04/28/21 22:45 promethazine HCl Allergy Hallucinati Verified 04/28/21 22:45 [From Phenergan] ons codeine phosphate AdvReac Itching Verified 04/28/21 22:45 [From Tylenol-Codeine #3] Physical Exam Vitals: Vital Signs Temp Pulse Resp BP BP Pulse Ox 05/02/21 11:36 98.4 F 63 18 123/75 97 05/02/21 06:18 97.8 F 56 L 18 124/76 91 L 05/02/21 01:42 97.5 F L 51 L 18 129/78 98 05/01/21 22:44 97.6 F 47 L 20 131/80 98 05/01/21 18:05 97.6 F 54 L 21 120/77 93 L 05/01/21 15:14 97.7 F 64 19 111/73 94 L Intake and Output 05/01/21 05/02/21 05/02/21 22:59 06:59 14:59 Other: Voiding Method Toilet # Voids 1 1 # Bowel Movements 1 Results 04/30/21 08:53 05/01/21 07:36 Cardiac Enzymes 05/01/21 05/02/21 05/02/21 Range/Units 07:36 06:26 10:22 Troponin I <0.012 <0.012 <0.012 (0.000-0.034) ng/mL Current Medications Generic Name Dose Route Start Last Admin Trade Name Freq PRN Reason Stop Dose Admin Acetaminophen 650 mg 04/29/21 00:23 04/29/21 20:06 Acetaminophen Tab 325 Mg Tab PO 650 mg Q6HR PRN Administration Mild Pain or Fever > 100.5 Ascorbic Acid 1,000 mg 04/29/21 12:15 05/02/21 09:23 Ascorbic Acid 500 Mg Tab PO 1,000 mg DAILY SINDI Administration Calcium Carbonate/Glycine 1,000 mg 04/29/21 12:12 Calcium Carbonate 500 Mg Chewable PO Q4HR PRN Dyspepsia Cholecalciferol 125 mcg 04/29/21 12:15 05/02/21 09:23 Cholecalciferol 125 Mcg (5000 Iu) Tablet PO 125 mcg DAILY SINDI Administration Dexamethasone 6 mg 04/30/21 09:00 05/02/21 09:23 Dexamethasone 2 Mg Tab PO 6 mg DAILY SINDI Administration Enoxaparin Sodium 40 mg 04/29/21 09:00 05/02/21 09:23 Enoxaparin 40 Mg/0.4 Ml Syringe SQ 40 mg DAILY SINDI Administration Sodium Chloride 1,000 mls @ 50 mls/hr 04/30/21 16:45 05/02/21 09:29 Saline 0.9% IV 50 mls/hr .Q20H SINDI Administration Lactulose 20 gm 04/29/21 12:12 Lactulose 20 Gm/30 Ml Cup PO DAILY PRN Constipation Loperamide HCl 2 mg 04/29/21 12:12 Loperamide 2 Mg Cap PO Q2HR PRN Loose Stool Lorazepam 0.5 mg 04/29/21 12:12 Lorazepam 0.5 Mg Tab PO Q6HR PRN Anxiety Melatonin 3 mg 04/29/21 12:12 Melatonin 3 Mg Tablet PO HS PRN Insomnia Naloxone HCl 0.2 mg 04/29/21 00:23 Naloxone 0.4 Mg/Ml 1 Ml Vial IV Q2M PRN Opioid Reversal Ondansetron HCl 4 mg 04/29/21 00:23 05/02/21 09:21 Ondansetron 4 Mg/2 Ml Vial IVP 4 mg Q8HR PRN Administration Nausea And Vomiting Psyllium Hydrophilic Mucilloid 6 gm 05/02/21 09:00 05/02/21 09:24 Psyllium Husk 100% 6 Gm Packet PO Not Given DAILY SINDI Zinc Sulfate 220 mg 04/29/21 12:15 05/02/21 09:23 Zinc Sulfate 220 Mg Cap PO 220 mg DAILY SINDI Administration Intake and Output 05/01/21 05/02/21 05/02/21 22:59 06:59 14:59 Other: Voiding Method Toilet # Voids 1 1 # Bowel Movements 1 04/30/21 08:53 05/01/21 07:36
--- NOTE | 2021-05-02 14:02 | P.PN ---
Progress Note - Text Progress Note Date: 05/02/21 Chief Complaint: Weak and tired This is a pleasant 65-year-old patient who follows with Dr. Birch. Chronic stable medical condition includes osteoarthritis, migraines, right kidney cancer with nephrectomy, urinary incontinence, Graves' disease. Patient started off with diarrhea last Saturday. Averaging about 4-5 per day. Appetite poor. Had some headache. No loss of smell or taste. She progressively got worse. Not even able to get out of bed. Short of breath with activity. Tested positive for COVID-19. No fever no chills. Tired rundown April 30: Tired. Had about 3-4 BMs since last 24 hours. Has been having some soups. On 3 L of nasal cannula. Did sit up in a chair. May 01: Patient earlier admitted to be sort of chest pain. She went to the bathroom without using her oxygen. [place] better after oxygen was replaced. I ordered EKG, troponin I, 2-D echo and cardiology consultation. No further episode. Eating about 25-50%. IV fluids. On 4 L of nasal cannula. Diarrhea resolved May 02: Eating some. Up in a chair. Short of breath. 5 L nasal cannula. Tired. No diarrhea. She does get dizzy when standing up. Feeling a bit better. Review of systems: Was done for constitutional, cardiovascular, GI, pulmonary. relevant finding as above Active Medications Acetaminophen (Acetaminophen Tab 325 Mg Tab) 650 mg PO Q6HR PRN PRN Reason: Mild Pain or Fever > 100.5 Last Admin: 04/29/21 20:06 Dose: 650 mg Documented by: Ascorbic Acid (Ascorbic Acid 500 Mg Tab) 1,000 mg PO DAILY [facility] Last Admin: 05/02/21 09:23 Dose: 1,000 mg Documented by: Aspirin (Aspirin 81 Mg) 81 mg PO DAILY [facility] Calcium Carbonate/Glycine (Calcium Carbonate 500 Mg Chewable) 1,000 mg PO Q4HR PRN PRN Reason: Dyspepsia Cholecalciferol (Cholecalciferol 125 Mcg (5000 Iu) Tablet) 125 mcg PO DAILY [facility] Last Admin: 05/02/21 09:23 Dose: 125 mcg Documented by: Dexamethasone (Dexamethasone 2 Mg Tab) 6 mg PO DAILY [facility] Last Admin: 05/02/21 09:23 Dose: 6 mg Documented by: Enoxaparin Sodium (Enoxaparin 40 Mg/0.4 Ml Syringe) 40 mg SQ DAILY [facility] Last Admin: 05/02/21 09:23 Dose: 40 mg Documented by: Sodium Chloride (Saline 0.9%) 1,000 mls @ 50 mls/hr IV .Q20H [facility] Last Admin: 05/02/21 09:29 Dose: 50 mls/hr Documented by: Lactulose (Lactulose 20 Gm/30 Ml Cup) 20 gm PO DAILY PRN PRN Reason: Constipation Loperamide HCl (Loperamide 2 Mg Cap) 2 mg PO Q2HR PRN PRN Reason: Loose Stool Lorazepam (Lorazepam 0.5 Mg Tab) 0.5 mg PO Q6HR PRN PRN Reason: Anxiety Melatonin (Melatonin 3 Mg Tablet) 3 mg PO HS PRN PRN Reason: Insomnia Naloxone HCl (Naloxone 0.4 Mg/Ml 1 Ml Vial) 0.2 mg IV Q2M PRN PRN Reason: Opioid Reversal Ondansetron HCl (Ondansetron 4 Mg/2 Ml Vial) 4 mg IVP Q8HR PRN PRN Reason: Nausea And Vomiting Last Admin: 05/02/21 09:21 Dose: 4 mg Documented by: Psyllium Hydrophilic Mucilloid (Psyllium Husk 100% 6 Gm Packet) 6 gm PO DAILY [facility] Last Admin: 05/02/21 09:24 Dose: Not Given Documented by: Zinc Sulfate (Zinc Sulfate 220 Mg Cap) 220 mg PO DAILY [facility] Last Admin: 05/02/21 09:23 Dose: 220 mg Documented by: On examination: VITAL SIGNS: 98.4, 63, 18, 133 seconds 35, 97% on 5 L GENERAL APPEARANCE: Reclining, awake tired. RESPIRATORY: Respiratory effort increased.. PSYCHIATRY: Alert and oriented x3. Mood and affect normal. NEUROLOGICAL: Cranial nerves grossly intact. Moving all 4 limbs Rest of exam per nursing and cardiology INVESTIGATIONS, reviewed in the clinical context: May 02: D-dimer 0.78 CRP 3.5 Troponin I 3 negative Limited 2-D echocardiogram: EF 55-60%. Moderate tricuspid regurgitation. [id number] mitral regurgitation. May 01: D-dimer 0.51 potassium 4.3 creatinine 0.82 CRP 3.9 April 30: White count 10.5 hemoglobin 13.1 potassium 3.8 creatinine 0.82 CRP 2.7 d-dimer 0.49 White count 6.3 hemoglobin 15 platelets 175 decreased lymphocyte sodium 132 potassium 3.7 creatinine 1.01 AST 58 ALT 36 CRP 5.9 EKG tracing personally reviewed by me-normal sinus rhythm. ST segment depression. Chest x-ray film personally reviewed by me-peripheral infiltrate Assessment and plan: -Acute COVID 19 pneumonitis symptoms starting about 7 days right admission. Vitamin C, vitamin D, zinc. Subcu Lovenox -Mild hypoxic respiratory failure. Patient's pulse ox did drop down to 92%: Slow to respond Dexamethasone 6 mg a day. 4 L nasal cannula. Pulmonary -Acute medical asthenia from diarrhea: Slow to respond IV fluids -Acute diarrhea secondary to COVID-19: Improved Imodium when necessary. Metamucil -Hyponatremia from decreased solute intake: Better Encourage oral intake. Add Ensure -Primary osteoarthritis Tylenol as needed -Chronic urinary stress incontinence -Right nephrectomy with a history of kidney cancer IV fluids. Dexamethasone. Subcu Lovenox. Metamucil. Oxygen 4 L. Discussed with patient. Continue current treatment.
--- NOTE | 2021-05-02 15:30 | P.CNPUL ---
History of Present Illness Consult date: 05/02/21 Reason for consult: dyspnea, hypoxemia, pneumonia History of present illness: This is a 65-year-old female patient, who has not received COVID 19 vaccination the patient is currently admitted for COVID 19 related pneumonia and complications related to COVID 19. The patient has history of clear cell carcinoma of the kidney and the patient undergone previous right nephrectomy. The patient also has history of Graves' disease treated with methimazole. She is also known to have migraines and osteoarthritis. The patient tested positive for COVID 19 on outpatient basis on 04/24/2021. The patient did not receive any outpatient treatments. The patient did not receive any steroids. The patient came in today burst department on 04/28/2021 because of shortness of breath special with activities. She stated that her condition was getting worse and the patient was unable to perform activities of daily today life. For that reason, the patient was admitted to the hospital for COVID 19 related pneumonia. The patient had a temperature 11.5 at the time of admission and the pulse ox was 93%. The patient is currently on 2 L about 2 by nasal cannula. Chest x-ray showing bilateral pulmonary infiltrates consistent with COVID 19 related pneumonia. Further workup showed an LDH level of 791, CRP level of 5.9, electrolytes were all essentially within normal limits, normal renal function, normal correlation profile, white cell count was at 6.3 with a hemoglobin of 15 and the platelet count of 175. For now, the patient is on Decadron. The patient is receiving Decadron 6 mg on a daily basis. The patient is considered to be outside the window for Remdesivir. The patient is receiving Lovenox 40 m subcu for DVT prophylaxis. The patient is also normal saline today to 50 mL an hour. The patient is on a combination of vitamin C, vitamin D and zinc.a repeat chest x-ray was done on 05/02/2001 and showed persistent bilateral multifocal increased infiltrates consistent with COVID 19 related pneumonia. No significant change compared to the earlier chest x-ray. Note that the patient was initially on 3 L about 2 by nasal cannula. Height oxygen flow was estimated at 5 L and the patient has been weaned down to 2 L again today to maintain a saturation above 90%. Tolerating her diet. Good appetite. No other complaints otherwise for now. Review of Systems Constitutional: Reports fatigue, Reports fever, Reports poor appetite, Reports weakness Eyes: denies as per HPI, denies blurred vision, denies bulging eye, denies decreased vision, denies diplopia, denies discharge, denies dry eye, denies irritation, denies itching, denies pain, denies photophobia, denies loss of peripheral vision, denies loss of vision, denies tunnel vision/blind spots Ears: deny: decreased hearing, ear discharge, earache, tinnitus Ears, nose, mouth and throat: Reports as per HPI Breasts: absent: as per HPI, change in shape, gynecomastia, masses, nipple discharge, pain, skin changes, swelling Cardiovascular: Reports decreased exercise tolerance, Reports dyspnea on exertion Respiratory: Reports cough, Reports dyspnea Gastrointestinal: Reports as per HPI Genitourinary: Reports as per HPI Menstruation: Reports as per HPI Musculoskeletal: Reports as per HPI Musculoskeletal: absent: ankle pain, ankle stiffness, ankle swelling, as per HPI, elbow pain, elbow stiffness, elbow swelling, foot pain, foot stiffness, foot swelling, hand pain, hand stiffness, hand swelling, hip pain, hip stiffness, hip swelling, knee pain, knee stiffness, knee swelling, shoulder pain, shoulder stiffness, shoulder swelling, wrist pain, wrist stiffness, wrist swelling Integumentary: Reports as per HPI Neurological: Reports as per HPI Psychiatric: Reports as per HPI Endocrine: Reports as per HPI Hematologic/Lymphatic: Reports as per HPI Allergic/Immunologic: Reports as per HPI Past Medical History Past Medical History: Cancer, Osteoarthritis (OA) Additional Past Medical History / Comment(s): COVID 19 04/24/2021- Unvaccinated , MIGRAINE HEADACHE, Clear cell cancer of the kidney and she had a right nephrectomy , OA ,incontinet urine, Graves diease (methimazole therapy) History of Any Multi-Drug Resistant Organisms: None Reported Past Surgical History: Bladder Surgery, Hysterectomy, Orthopedic Surgery Additional Past Surgical History / Comment(s): D&C, LAPAROSCOPIC EXAM, arthroscopic knee surg., right nephrectomy.bladder susp with later repair, 516- [id number] TOTAL RT KNEE. Past Anesthesia/Blood Transfusion Reactions: Previous Problems w/ Anesthesia Additional Past Anesthesia/Blood Transfusion Reaction / Comment(s): states "very low BP with anesthesia and has a hard time waking up" Past Psychological History: No Psychological Hx Reported Smoking Status: Never smoker Past Alcohol Use History: Rare Additional Past Alcohol Use History / Comment(s): STATED STARTED SMOKING AT AGE 13,STOPPED FROM 1981 TOLL 2009 THEN RESTARTED ,SMOKED 1PPD. Past Drug Use History: None Reported - Past Family History Sister(s) Additional Family Medical History / Comment(s): MS Mother Family Medical History: Cancer Father Family Medical History: Cancer Medications and Allergies Home Medications Medication Instructions Recorded Confirmed Type ondansetron HCL [Zofran] 8 mg PO TID PRN 04/28/21 04/28/21 History Allergies Allergy/AdvReac Type Severity Reaction Status Date / Time bupropion [From Wellbutrin] Allergy Rash/Hives Verified 04/28/21 22:45 promethazine HCl Allergy Hallucinati Verified 04/28/21 22:45 [From Phenergan] ons codeine phosphate AdvReac Itching Verified 04/28/21 22:45 [From Tylenol-Codeine #3] Physical Exam Vitals: Vital Signs Temp Pulse Resp BP BP Pulse Ox 05/02/21 12:14 96 05/02/21 11:36 98.4 F 63 18 123/75 97 05/02/21 06:18 97.8 F 56 L 18 124/76 91 L 05/02/21 01:42 97.5 F L 51 L 18 129/78 98 05/01/21 22:44 97.6 F 47 L 20 131/80 98 05/01/21 18:05 97.6 F 54 L 21 120/77 93 L 05/01/21 15:14 97.7 F 64 19 111/73 94 L Intake and Output 05/01/21 05/02/21 05/02/21 22:59 06:59 14:59 Other: Voiding Method Toilet # Voids 1 1 # Bowel Movements 1 General appearance: alert, anxious, lethargic, in distress, the patient is currently on 2 L of oxygen by nasal cannula Head exam: Present: atraumatic, normocephalic, normal inspection Eye exam: Present: normal appearance, PERRL, EOMI. Absent: scleral icterus, conjunctival injection, periorbital swelling ENT exam: Present: normal exam, mucous membranes moist Neck exam: Present: normal inspection. Absent: tenderness, meningismus, lymphadenopathy Respiratory exam: The patient has crackles in the mid and lower lung jasso bilaterally. Cardiovascular Exam: Present: regular rate, normal rhythm, normal heart sounds. Absent: systolic murmur, diastolic murmur, rubs, gallop, clicks GI/Abdominal exam: Present: soft, normal bowel sounds. Absent: distended, tenderness, guarding, rebound, rigid Extremities exam: Present: normal inspection, full ROM, normal capillary refill. Absent: tenderness, pedal edema, joint swelling, calf tenderness Back exam: Present: normal inspection Neurological exam: Present: alert, oriented X3, CN II-XII intact Psychiatric exam: Present: normal affect, normal mood Skin exam: Present: warm, dry, intact, normal color. Absent: rash Results - Laboratory Findings CBC and BMP: 04/30/21 08:53 05/01/21 07:36 PT/INR, D-dimer PT 10.1 sec (9.0-12.0) 04/28/21 22:16 INR 0.9 (<1.2) 04/28/21 22:16 D-Dimer 0.78 mg/L FEU (<0.60) H 05/02/21 06:26 Abnormal lab findings: Abnormal Labs 04/28/21 04/28/21 04/30/21 22:16 22:16 08:53 WBC Neutrophils # Lymphocytes # 0.6 L Eosinophils # D-Dimer Sodium 132 L Chloride 113 H Glucose Calcium 8.1 L AST 58 H 43 H ALT 36 H Lactate Dehydrogenase 791 H C-Reactive Protein 5.9 H 2.7 H Total Protein 5.5 L Albumin 2.9 L 04/30/21 05/01/21 05/02/21 08:53 07:36 06:26 WBC 10.59 H Neutrophils # 8.77 H Lymphocytes # Eosinophils # 0 L D-Dimer 0.78 H Sodium Chloride 108 H Glucose 104 H Calcium AST ALT Lactate Dehydrogenase C-Reactive Protein 3.9 H Total Protein Albumin 05/02/21 06:26 WBC Neutrophils # Lymphocytes # Eosinophils # D-Dimer Sodium Chloride Glucose Calcium AST ALT Lactate Dehydrogenase C-Reactive Protein 3.5 H Total Protein Albumin Assessment and Plan Plan: 1 acute hypoxic respiratory failure secondary COVID 19 related to pneumonia. The patient is currently on 2 L oxygen by nasal cannula 2 acute COVID 19 related pneumonia. The patient was diagnosed having an infection on outpatient basis on 04/24/2020. The patient was symptomatically prior to that her symptoms started approximately around New Year's. The patient is currently on Decadron. The patient is also at the window for Remdesivir treatment. This patient is not vaccinated. 3 mild elevation of the inflammatory markers secondary to above 4 shortness of breath secondary to above 5 history of renal cell carcinoma the patient undergone previous right nephrectomy 6 history of Graves' disease 7 history of migraines 8 history of osteoarthritis Plan Wean down the FiO2 to maintain a saturation above 90% currently on 2 L Continue Decadron Outside the window for Remdesivir treatment Inflammatory markers are in generally low Continue multivitamins Wean down the oxygen further to maintain a saturation above 90%. We'll continue to follow make further recommendations based on her progress.
[2021-05-03] MEDS: SODIUM CHLORIDE 0.9% 1,000 ML IV SCH (01:49)
[2021-05-03] MEDS: ASPIRIN 81 MG PO SCH (07:48)
[2021-05-03] MEDS: ASCORBIC ACID 500 MG TAB PO SCH (07:48)
[2021-05-03] MEDS: CHOLECALCIFEROL 125 MCG (5000 IU) TABLET PO SCH (07:49)
[2021-05-03] MEDS: PSYLLIUM HUSK 100% 6 GM PACKET PO SCH (07:49)
[2021-05-03] MEDS: ZINC SULFATE 220 MG CAP PO SCH (07:49)
[2021-05-03] MEDS: ENOXAPARIN 40 MG/0.4 ML SYRINGE SQ SCH (07:49)
[2021-05-03] MEDS: dexAMETHasone 2 MG TAB PO SCH (07:49)
--- NOTE | 2021-05-03 16:58 | P.PN ---
Progress Note - Text Progress Note Date: 05/03/21 Chief Complaint: Weak and tired This is a pleasant 65-year-old patient who follows with Dr. Birch. Chronic stable medical condition includes osteoarthritis, migraines, right kidney cancer with nephrectomy, urinary incontinence, Graves' disease. Patient started off with diarrhea last Saturday. Averaging about 4-5 per day. Appetite poor. Had some headache. No loss of smell or taste. She progressively got worse. Not even able to get out of bed. Short of breath with activity. Tested positive for COVID-19. No fever no chills. Tired rundown April 30: Tired. Had about 3-4 BMs since last 24 hours. Has been having some soups. On 3 L of nasal cannula. Did sit up in a chair. May 01: Patient earlier admitted to be sort of chest pain. She went to the bathroom without using her oxygen. [place] better after oxygen was replaced. I ordered EKG, troponin I, 2-D echo and cardiology consultation. No further episode. Eating about 25-50%. IV fluids. On 4 L of nasal cannula. Diarrhea resolved May 02: Eating some. Up in a chair. Short of breath. 5 L nasal cannula. Tired. No diarrhea. She does get dizzy when standing up. Feeling a bit better. May 03: Eating about 25-50%. Up in a chair. Some shortness of breath. On 3 L nasal cannula. Tired. No diarrhea. Review of systems: Was done for constitutional, cardiovascular, GI, pulmonary. relevant finding as above Active Medications Acetaminophen (Acetaminophen Tab 325 Mg Tab) 650 mg PO Q6HR PRN PRN Reason: Mild Pain or Fever > 100.5 Last Admin: 04/29/21 20:06 Dose: 650 mg Documented by: Ascorbic Acid (Ascorbic Acid 500 Mg Tab) 1,000 mg PO DAILY [facility] Last Admin: 05/03/21 07:48 Dose: 1,000 mg Documented by: Aspirin (Aspirin 81 Mg) 81 mg PO DAILY [facility] Last Admin: 05/03/21 07:48 Dose: 81 mg Documented by: Calcium Carbonate/Glycine (Calcium Carbonate 500 Mg Chewable) 1,000 mg PO Q4HR PRN PRN Reason: Dyspepsia Cholecalciferol (Cholecalciferol 125 Mcg (5000 Iu) Tablet) 125 mcg PO DAILY [facility] Last Admin: 05/03/21 07:49 Dose: 125 mcg Documented by: Dexamethasone (Dexamethasone 2 Mg Tab) 6 mg PO DAILY [facility] Last Admin: 05/03/21 07:49 Dose: 6 mg Documented by: Enoxaparin Sodium (Enoxaparin 40 Mg/0.4 Ml Syringe) 40 mg SQ DAILY [facility] Last Admin: 05/03/21 07:49 Dose: 40 mg Documented by: Sodium Chloride (Saline 0.9%) 1,000 mls @ 50 mls/hr IV .Q20H [facility] Last Admin: 05/03/21 01:49 Dose: 50 mls/hr Documented by: Lactulose (Lactulose 20 Gm/30 Ml Cup) 20 gm PO DAILY PRN PRN Reason: Constipation Loperamide HCl (Loperamide 2 Mg Cap) 2 mg PO Q2HR PRN PRN Reason: Loose Stool Lorazepam (Lorazepam 0.5 Mg Tab) 0.5 mg PO Q6HR PRN PRN Reason: Anxiety Melatonin (Melatonin 3 Mg Tablet) 3 mg PO HS PRN PRN Reason: Insomnia Naloxone HCl (Naloxone 0.4 Mg/Ml 1 Ml Vial) 0.2 mg IV Q2M PRN PRN Reason: Opioid Reversal Ondansetron HCl (Ondansetron 4 Mg/2 Ml Vial) 4 mg IVP Q8HR PRN PRN Reason: Nausea And Vomiting Last Admin: 05/02/21 09:21 Dose: 4 mg Documented by: Psyllium Hydrophilic Mucilloid (Psyllium Husk 100% 6 Gm Packet) 6 gm PO DAILY [facility] Last Admin: 05/03/21 07:49 Dose: Not Given Documented by: Zinc Sulfate (Zinc Sulfate 220 Mg Cap) 220 mg PO DAILY [facility] Last Admin: 05/03/21 07:49 Dose: 220 mg Documented by: On examination: VITAL SIGNS: 97.3, 57, 17, 117/74, 97% on 3 L GENERAL APPEARANCE: Reclining in chair, awake tired. RESPIRATORY: Respiratory effort increased.. PSYCHIATRY: Alert and oriented x3. Mood and affect normal. NEUROLOGICAL: Cranial nerves grossly intact. Moving all 4 limbs Rest of exam per nursing and cardiology INVESTIGATIONS, reviewed in the clinical context: May 03: D-dimer 0.81 CRP 2.9 May 02: D-dimer 0.78 CRP 3.5 Troponin I 3 negative Limited 2-D echocardiogram: EF 55-60%. Moderate tricuspid regurgitation. [id number] mitral regurgitation. May 01: D-dimer 0.51 potassium 4.3 creatinine 0.82 CRP 3.9 April 30: White count 10.5 hemoglobin 13.1 potassium 3.8 creatinine 0.82 CRP 2.7 d-dimer 0.49 White count 6.3 hemoglobin 15 platelets 175 decreased lymphocyte sodium 132 potassium 3.7 creatinine 1.01 AST 58 ALT 36 CRP 5.9 EKG tracing personally reviewed by me-normal sinus rhythm. ST segment depression. Chest x-ray film personally reviewed by me-peripheral infiltrate Assessment and plan: -Acute COVID 19 pneumonitis symptoms starting about 7 days right admission: Slow to respond. Vitamin C, vitamin D, zinc. Subcu Lovenox -Mild hypoxic respiratory failure. Patient's pulse ox did drop down to 92%: Slow to respond Dexamethasone 6 mg a day. 3 L nasal cannula. Pulmonary -Acute medical asthenia from diarrhea: Slow to respond IV fluids -Acute diarrhea secondary to COVID-19: Improved Imodium when necessary. Metamucil -Hyponatremia from decreased solute intake: Better Encourage oral intake. Add Ensure -Primary osteoarthritis Tylenol as needed -Chronic urinary stress incontinence -Right nephrectomy with a history of kidney cancer IV fluids. Dexamethasone. Subcu Lovenox. Metamucil. Oxygen 3 L. encouraged to increase activity. Follow-up with pulmonary.
--- NOTE | 2021-05-03 17:51 | P.PN ---
Subjective Progress Note Date: 05/03/21 Principal diagnosis: Dyspnea This is a 65-year-old female patient, who has not received COVID 19 vaccination the patient is currently admitted for COVID 19 related pneumonia and c omplications related to COVID 19. The patient has history of clear cell carcinoma of the kidney and the patient undergone previous right nephrectomy. The patient also has history of Graves' disease treated with methimazole. She is also known to have migraines and osteoarthritis. The patient tested positive for COVID 19 on outpatient basis on 04/24/2021. The patient did not receive any outpatient treatments. The patient did not receive any steroids. The patient came in today burst department on 04/28/2021 because of shortness of breath special with activities. She stated that her condition was getting worse and the patient was unable to perform activities of daily today life. For that reason, the patient was admitted to the hospital for COVID 19 related pneumonia. The patient had a temperature 11.5 at the time of admission and the pulse ox was 93%. The patient is currently on 2 L about 2 by nasal cannula. Chest x-ray showing bilateral pulmonary infiltrates consistent with COVID 19 related pneumonia. Further workup showed an LDH level of 791, CRP level of 5.9, electrolytes were all essentially within normal limits, normal renal function, normal correlation profile, white cell count was at 6.3 with a hemoglobin of 15 and the platelet count of 175. For now, the patient is on Decadron. The patient is receiving Decadron 6 mg on a daily basis. The patient is considered to be outside the window for Remdesivir. The patient is receiving Lovenox 40 m subcu for DVT prophylaxis. The patient is also normal saline today to 50 mL an hour. The patient is on a combination of vitamin C, vitamin D and zinc.a repeat chest x-ray was done on 05/02/2001 and showed persistent bilateral multifocal increased infiltrates consistent with COVID 19 related pneumonia. No significan t change compared to the earlier chest x-ray. Note that the patient was initially on 3 L about 2 by nasal cannula. Height oxygen flow was estimated at 5 L and the patient has been weaned down to 2 L again today to maintain a saturation above 90%. Tolerating her diet. Good appetite. No other complaints otherwise for now. On 05/03/2021 patient seen in follow-up on medical surgical floor, she is awake and alert, in no acute distress, she is resting comfortably in bed, no worsening dyspnea, she is currently on 3 L of oxygen pulse ox between 93-97%, afebrile, hemodynamically stable. No new chest x-ray, last chest x-ray from yesterday showed bilateral multifocal opacities, increased. Today's labs have been reviewed, d-dimer 0.81, pro calcitonin level was negative at 0.09, her CRP is 2.9, LDH level is still pending. She has been getting up in the chair, tolerating it fairly well, appetite is still poor, but slightly improved. No nausea vomiting or diarrhea. Objective - Vital Signs Vital signs: Vital Signs Temp 98.3 F 05/03/21 16:41 Pulse 41 L 05/03/21 16:41 Resp 17 05/03/21 16:41 BP 129/82 05/03/21 16:41 Pulse Ox 93 L 05/03/21 16:41 Intake & Output 05/02/21 05/03/21 05/03/21 18:59 06:59 18:59 Intake Total 240 Balance 240 Intake: IV 240 Sodium Chloride 0.9% 1, 240 000 ml @ 50 mls/hr IV . Q20H [facility] Rx#:[id number] Other: Voiding Method Toilet Toilet Toilet # Voids 5 4 - Exam GENERAL EXAM: Alert, very pleasant 65-year-old white female, on 3 L of oxygen the pulse ox of 93-97% comfortable in no apparent distress. HEAD: Normocephalic/atraumatic. EYES: Normal reaction of pupils, equal size. Conjunctiva pink, sclera white. NOSE: Clear with pink turbinates. THROAT: No erythema or exudates. NECK: No masses, no JVD, no thyroid enlargement, no adenopathy. CHEST: No chest wall deformity. Symmetrical expansion. LUNGS: Equal air entry with bibasilar crackles CVS: Regular rate and rhythm, normal S1 and S2, no gallops, no murmurs, no rubs ABDOMEN: Soft, nontender. No hepatosplenomegaly, normal bowel sounds, no guarding or rigidity. EXTREMITIES: No clubbing, no edema, no cyanosis, 2+ pulses and upper and lower extremities. MUSCULOSKELETAL: Muscle strength and tone normal. SPINE: No scoliosis or deformity SKIN: No rashes CENTRAL NERVOUS SYSTEM: Alert and oriented -3. No focal deficits, tone is normal in all 4 extremities. PSYCHIATRIC: Alert and oriented -3. Appropriate affect. Intact judgment and insight. - Labs CBC & Chem 7: 04/30/21 08:53 05/01/21 07:36 Labs: Abnormal Lab Results - Last 24 Hours (Table) 05/03/21 05/03/21 Range/Units 06:30 06:30 D-Dimer 0.81 H (<0.60) mg/L FEU C-Reactive Protein 2.9 H (<1.0) mg/dL Assessment and Plan Plan: Assessment: #1. Acute hypoxic respiratory failure secondary to COVID 19 related pneumonia, patient was outside the window recommended surgical treatment, she currently remains on 2-3 L of oxygen, continues on Decadron 6 mg daily. Patient was diagnosed on an outpatient basis on April 24, 2021. She has been symptomatic since 04/21/2021. She is not vaccinated against COVID-19 #2. Mild elevation in the telemetry marker secondary to the above #3. Shortness of breath, cough related to the above #4. History of renal cell carcinoma with previous right nephrectomy #5. History of Graves' disease #6. History of migraines #7. History of osteoporosis Plan: Continue current medical treatment Continue Decadron No worsening dyspnea Breathing is stable Continue Lovenox and multivitamins We'll continue to follow her clinical progress I performed a history & physical examination of the patient and discussed their management with my nurse practitioner, Winnie Perez. I reviewed the nurse practitioner's note and agree with the documented findings and plan of care. Lung sounds are positive for dim breath sounds throughout the lung jasso. The findings and the impression was discussed with the patient. I attest to the documentation by the nurse practitioner. Time with Patient: Less than 30
[2021-05-04] MEDS: SODIUM CHLORIDE 0.9% 1,000 ML IV SCH ×2 (02:11→21:58)
[2021-05-04] MEDS: ZINC SULFATE 220 MG CAP PO SCH (09:43)
[2021-05-04] MEDS: ASPIRIN 81 MG PO SCH (09:43)
[2021-05-04] MEDS: CHOLECALCIFEROL 125 MCG (5000 IU) TABLET PO SCH (09:43)
[2021-05-04] MEDS: ASCORBIC ACID 500 MG TAB PO SCH (09:43)
[2021-05-04] MEDS: dexAMETHasone 2 MG TAB PO SCH (09:43)
[2021-05-04] MEDS: ENOXAPARIN 40 MG/0.4 ML SYRINGE SQ SCH (09:43)
[2021-05-04] MEDS: PSYLLIUM HUSK 100% 6 GM PACKET PO SCH (10:01)
[2021-05-04 15:44] VITALS: BMI 29.2
--- NOTE | 2021-05-04 17:32 | P.PN ---
Subjective Progress Note Date: 05/04/21 Principal diagnosis: Dyspnea This is a 65-year-old female patient, who has not received COVID 19 vaccination the patient is currently admitted for COVID 19 related pneumonia and c omplications related to COVID 19. The patient has history of clear cell carcinoma of the kidney and the patient undergone previous right nephrectomy. The patient also has history of Graves' disease treated with methimazole. She is also known to have migraines and osteoarthritis. The patient tested positive for COVID 19 on outpatient basis on 04/24/2021. The patient did not receive any outpatient treatments. The patient did not receive any steroids. The patient came in today burst department on 04/28/2021 because of shortness of breath special with activities. She stated that her condition was getting worse and the patient was unable to perform activities of daily today life. For that reason, the patient was admitted to the hospital for COVID 19 related pneumonia. The patient had a temperature 11.5 at the time of admission and the pulse ox was 93%. The patient is currently on 2 L about 2 by nasal cannula. Chest x-ray showing bilateral pulmonary infiltrates consistent with COVID 19 related pneumonia. Further workup showed an LDH level of 791, CRP level of 5.9, electrolytes were all essentially within normal limits, normal renal function, normal correlation profile, white cell count was at 6.3 with a hemoglobin of 15 and the platelet count of 175. For now, the patient is on Decadron. The patient is receiving Decadron 6 mg on a daily basis. The patient is considered to be outside the window for Remdesivir. The patient is receiving Lovenox 40 m subcu for DVT prophylaxis. The patient is also normal saline today to 50 mL an hour. The patient is on a combination of vitamin C, vitamin D and zinc.a repeat chest x-ray was done on 05/02/2001 and showed persistent bilateral multifocal increased infiltrates consistent with COVID 19 related pneumonia. No significan t change compared to the earlier chest x-ray. Note that the patient was initially on 3 L about 2 by nasal cannula. Height oxygen flow was estimated at 5 L and the patient has been weaned down to 2 L again today to maintain a saturation above 90%. Tolerating her diet. Good appetite. No other complaints otherwise for now. On 05/03/2021 patient seen in follow-up on medical surgical floor, she is awake and alert, in no acute distress, she is resting comfortably in bed, no worsening dyspnea, she is currently on 3 L of oxygen pulse ox between 93-97%, afebrile, hemodynamically stable. No new chest x-ray, last chest x-ray from yesterday showed bilateral multifocal opacities, increased. Today's labs have been reviewed, d-dimer 0.81, pro calcitonin level was negative at 0.09, her CRP is 2.9, LDH level is still pending. She has been getting up in the chair, tolerating it fairly well, appetite is still poor, but slightly improved. No nausea vomiting or diarrhea. On 05/04/2021 patient seen in follow-up on medical surgical floor, she is currently on room air, she is resting comfortably in bed, her pulse ox is 91%, overall her oxygenation seems to be improving. Afebrile. Hemodynamically patient has remained stable, some shortness of breath with activity, appetite is still poor, but tolerating oral intake, no nausea vomiting or diarrhea. His labs have been reviewed, d-dimer is 1.33, CRP is improving and is down to 1.7, LDH level is pending, pro calcitonin level was negative. Overall has remained stable, she continues on Decadron 6 mg daily, Lovenox 40 mg daily, multivitamins , this had no acute events overnight. Objective - Vital Signs Vital signs: Vital Signs Temp 97.5 F L 05/04/21 14:00 Pulse 67 05/04/21 14:00 Resp 18 05/04/21 14:00 BP 126/78 05/04/21 14:00 Pulse Ox 92 L 05/04/21 14:00 Intake & Output 05/03/21 05/04/21 05/04/21 18:59 06:59 18:59 Weight 84.822 kg Other: Voiding Method Toilet Toilet # Voids 4 2 - Exam GENERAL EXAM: Alert, very pleasant 65-year-old white female, on room air with the pulse ox of 93-97% comfortable in no apparent distress. HEAD: Normocephalic/atraumatic. EYES: Normal reaction of pupils, equal size. Conjunctiva pink, sclera white. NOSE: Clear with pink turbinates. THROAT: No erythema or exudates. NECK: No masses, no JVD, no thyroid enlargement, no adenopathy. CHEST: No chest wall deformity. Symmetrical expansion. LUNGS: Equal air entry with bibasilar crackles CVS: Regular rate and rhythm, normal S1 and S2, no gallops, no murmurs, no rubs ABDOMEN: Soft, nontender. No hepatosplenomegaly, normal bowel sounds, no guarding or rigidity. EXTREMITIES: No clubbing, no edema, no cyanosis, 2+ pulses and upper and lower extremities. MUSCULOSKELETAL: Muscle strength and tone normal. SPINE: No scoliosis or deformity SKIN: No rashes CENTRAL NERVOUS SYSTEM: Alert and oriented -3. No focal deficits, tone is normal in all 4 extremities. PSYCHIATRIC: Alert and oriented -3. Appropriate affect. Intact judgment and insight. - Labs CBC & Chem 7: 04/30/21 08:53 05/01/21 07:36 Labs: Abnormal Lab Results - Last 24 Hours (Table) 05/04/21 05/04/21 Range/Units 06:25 06:25 D-Dimer 1.33 H (<0.60) mg/L FEU C-Reactive Protein 1.7 H (<1.0) mg/dL Assessment and Plan Plan: Assessment: #1. Acute hypoxic respiratory failure secondary to COVID 19 related pneumonia, patient was outside the window recommended surgical treatment, she currently remains on 2-3 L of oxygen, continues on Decadron 6 mg daily. Patient was diagnosed on an outpatient basis on April 24, 2021. She has been symptomatic since 04/21/2021. She is not vaccinated against COVID-19 #2. Mild elevation in the telemetry marker secondary to the above #3. Shortness of breath, cough related to the above #4. History of renal cell carcinoma with previous right nephrectomy #5. History of Graves' disease #6. History of migraines #7. History of osteoporosis Plan: Clinically patient has remained stable No worsening dyspnea, no significant cough or congestion Patient is currently on room air Continue current medical treatment Continue Decadron She may be considered for discharge home in the next 24 hours We'll continue to follow her clinical progress I performed a history & physical examination of the patient and discussed their management with my nurse practitioner, Winnie Perez. I reviewed the nurse practitioner's note and agree with the documented findings and plan of care. Lung sounds are positive for dim breath sounds throughout the lung jasso. The findings and the impression was discussed with the patient. I attest to the documentation by the nurse practitioner. Time with Patient: Less than 30
--- NOTE | 2021-05-04 18:17 | P.PN ---
Progress Note - Text Progress Note Date: 05/04/21 Chief Complaint: Weak and tired This is a pleasant 65-year-old patient who follows with Dr. Birch. Chronic stable medical condition includes osteoarthritis, migraines, right kidney cancer with nephrectomy, urinary incontinence, Graves' disease. Patient started off with diarrhea last Saturday. Averaging about 4-5 per day. Appetite poor. Had some headache. No loss of smell or taste. She progressively got worse. Not even able to get out of bed. Short of breath with activity. Tested positive for COVID-19. No fever no chills. Tired rundown April 30: Tired. Had about 3-4 BMs since last 24 hours. Has been having some soups. On 3 L of nasal cannula. Did sit up in a chair. May 01: Patient earlier admitted to be sort of chest pain. She went to the bathroom without using her oxygen. [place] better after oxygen was replaced. I ordered EKG, troponin I, 2-D echo and cardiology consultation. No further episode. Eating about 25-50%. IV fluids. On 4 L of nasal cannula. Diarrhea resolved May 02: Eating some. Up in a chair. Short of breath. 5 L nasal cannula. Tired. No diarrhea. She does get dizzy when standing up. Feeling a bit better. May 03: Eating about 25-50%. Up in a chair. Some shortness of breath. On 3 L nasal cannula. Tired. No diarrhea. May 04: Updated recliner. Some shortness of breath. On 3 L of nasal cannula. Encouraged to ambulate. During liver exercises while sitting down.. Review of systems: Was done for constitutional, cardiovascular, GI, pulmonary. relevant finding as above Active Medications Acetaminophen (Acetaminophen Tab 325 Mg Tab) 650 mg PO Q6HR PRN PRN Reason: Mild Pain or Fever > 100.5 Last Admin: 04/29/21 20:06 Dose: 650 mg Documented by: Ascorbic Acid (Ascorbic Acid 500 Mg Tab) 1,000 mg PO DAILY [facility] Last Admin: 05/04/21 09:43 Dose: 1,000 mg Documented by: Aspirin (Aspirin 81 Mg) 81 mg PO DAILY [facility] Last Admin: 05/04/21 09:43 Dose: 81 mg Documented by: Calcium Carbonate/Glycine (Calcium Carbonate 500 Mg Chewable) 1,000 mg PO Q4HR PRN PRN Reason: Dyspepsia Cholecalciferol (Cholecalciferol 125 Mcg (5000 Iu) Tablet) 125 mcg PO DAILY [facility] Last Admin: 05/04/21 09:43 Dose: 125 mcg Documented by: Dexamethasone (Dexamethasone 2 Mg Tab) 6 mg PO DAILY [facility] Last Admin: 05/04/21 09:43 Dose: 6 mg Documented by: Enoxaparin Sodium (Enoxaparin 40 Mg/0.4 Ml Syringe) 40 mg SQ DAILY [facility] Last Admin: 05/04/21 09:43 Dose: 40 mg Documented by: Sodium Chloride (Saline 0.9%) 1,000 mls @ 50 mls/hr IV .Q20H [facility] Last Admin: 05/04/21 02:11 Dose: Not Given Documented by: Lactulose (Lactulose 20 Gm/30 Ml Cup) 20 gm PO DAILY PRN PRN Reason: Constipation Loperamide HCl (Loperamide 2 Mg Cap) 2 mg PO Q2HR PRN PRN Reason: Loose Stool Lorazepam (Lorazepam 0.5 Mg Tab) 0.5 mg PO Q6HR PRN PRN Reason: Anxiety Melatonin (Melatonin 3 Mg Tablet) 3 mg PO HS PRN PRN Reason: Insomnia Naloxone HCl (Naloxone 0.4 Mg/Ml 1 Ml Vial) 0.2 mg IV Q2M PRN PRN Reason: Opioid Reversal Ondansetron HCl (Ondansetron 4 Mg/2 Ml Vial) 4 mg IVP Q8HR PRN PRN Reason: Nausea And Vomiting Last Admin: 05/02/21 09:21 Dose: 4 mg Documented by: Psyllium Hydrophilic Mucilloid (Psyllium Husk 100% 6 Gm Packet) 6 gm PO DAILY [facility] Last Admin: 05/04/21 10:01 Dose: Not Given Documented by: Zinc Sulfate (Zinc Sulfate 220 Mg Cap) 220 mg PO DAILY [facility] Last Admin: 05/04/21 09:43 Dose: 220 mg Documented by: On examination: VITAL SIGNS: 97.5, 57, 18, 135/75, 95% on 3 L GENERAL APPEARANCE: Reclining in chair, awake RESPIRATORY: Respiratory effort increased.. PSYCHIATRY: Alert and oriented x3. Mood and affect normal. NEUROLOGICAL: Cranial nerves grossly intact. Moving all 4 limbs Rest of exam per nursing and cardiology INVESTIGATIONS, reviewed in the clinical context: May 04: D-dimer 1.33 CRP 1.7 May 03: D-dimer 0.81 CRP 2.9 May 02: D-dimer 0.78 CRP 3.5 Troponin I 3 negative Limited 2-D echocardiogram: EF 55-60%. Moderate tricuspid regurgitation. [id number] mitral regurgitation. May 01: D-dimer 0.51 potassium 4.3 creatinine 0.82 CRP 3.9 April 30: White count 10.5 hemoglobin 13.1 potassium 3.8 creatinine 0.82 CRP 2.7 d-dimer 0.49 White count 6.3 hemoglobin 15 platelets 175 decreased lymphocyte sodium 132 potassium 3.7 creatinine 1.01 AST 58 ALT 36 CRP 5.9 EKG tracing personally reviewed by me-normal sinus rhythm. ST segment depression. Chest x-ray film personally reviewed by me-peripheral infiltrate Assessment and plan: -Acute COVID 19 pneumonitis symptoms starting about 7 days right admission: Slow improvement Vitamin C, vitamin D, zinc. Subcu Lovenox -Mild hypoxic respiratory failure. Patient's pulse ox did drop down to 92%: Slow improvement Dexamethasone 6 mg a day. 3 L nasal cannula. Pulmonary -Acute medical asthenia from diarrhea: Slow to respond IV fluids -Acute diarrhea secondary to COVID-19: Improved Imodium when necessary. Metamucil -Hyponatremia from decreased solute intake: Better Encourage oral intake. Add Ensure -Primary osteoarthritis Tylenol as needed -Chronic urinary stress incontinence -Right nephrectomy with a history of kidney cancer Stop IV fluids.. Dexamethasone. Subcu Lovenox. . Oxygen 3 L. encouraged to increase activity. Checks oxygen with activity. Hopefully discharge tomorrow.
[2021-05-05] MEDS: CHOLECALCIFEROL 125 MCG (5000 IU) TABLET PO SCH (09:12)
[2021-05-05] MEDS: ENOXAPARIN 40 MG/0.4 ML SYRINGE SQ SCH (09:12)
[2021-05-05] MEDS: ASCORBIC ACID 500 MG TAB PO SCH (09:12)
[2021-05-05] MEDS: ASPIRIN 81 MG PO SCH (09:12)
[2021-05-05] MEDS: ZINC SULFATE 220 MG CAP PO SCH (09:12)
[2021-05-05] MEDS: dexAMETHasone 2 MG TAB PO SCH (09:12)
[2021-05-05] MEDS: PSYLLIUM HUSK 100% 6 GM PACKET PO SCH (09:13)
[2021-05-05 11:03] VITALS: BP 118/71; PULSE 58; RESP 17; TEMP 97.5
--- NOTE | 2021-05-05 14:20 | P.PN ---
Subjective Progress Note Date: 05/05/21 This is a 65-year-old female patient, who has not received COVID 19 vaccination the patient is currently admitted for COVID 19 related pneumonia and complications related to COVID 19. The patient has history of clear cell carcinoma of the kidney and the patient undergone previous right nephrectomy. The patient also has history of Graves' disease treated with methimazole. She is also known to have migraines and osteoarthritis. The patient tested positive for COVID 19 on outpatient basis on 04/24/2021. The patient did not receive any outpatient treatments. The patient did not receive any steroids. The patient came in today burst department on 04/28/2021 because of shortness of breath special with activities. She stated that her condition was getting worse and the patient was unable to perform activities of daily today life. For that reason, the patient was admitted to the hospital for COVID 19 related pneumonia. The patient had a temperature 11.5 at the time of admission and the pulse ox was 93%. The patient is currently on 2 L about 2 by nasal cannula. Chest x-ray showing bilateral pulmonary infiltrates consistent with COVID 19 related pneumonia. Further workup showed an LDH level of 791, CRP level of 5.9, electrolytes were all essentially within normal limits, normal renal function, normal correlation profile, white cell count was at 6.3 with a hemoglobin of 15 and the platelet count of 175. For now, the patient is on Decadron. The patient is receiving Decadron 6 mg on a daily basis. The patient is considered to be outside the window for Remdesivir. The patient is receiving Lovenox 40 m subcu for DVT prophylaxis. The patient is also normal saline today to 50 mL an hour. The patient is on a combination of vitamin C, vitamin D and zinc.a repeat chest x-ray was done on 05/02/2001 and showed persistent bilateral multifocal increased infiltrates consistent with COVID 19 related pneumonia. No significant change compared to the earlier chest x-ray. Note that the patient was initially on 3 L about 2 by nasal cannula. Height oxygen flow was estimated at 5 L and the patient has been weaned down to 2 L again today to maintain a saturation above 90%. Tolerating her diet. Good appetite. No other complaints otherwise for now. On 05/03/2021 patient seen in follow-up on medical surgical floor, she is awake and alert, in no acute distress, she is resting comfortably in bed, no worsening dyspnea, she is currently on 3 L of oxygen pulse ox between 93-97%, afebrile, hemodynamically stable. No new chest x-ray, last chest x-ray from yesterday showed bilateral multifocal opacities, increased. Today's labs have been reviewed, d-dimer 0.81, pro calcitonin level was negative at 0.09, her CRP is 2.9, LDH level is still pending. She has been getting up in the chair, tolerating it fairly well, appetite is still poor, but slightly improved. No nausea vomiting or diarrhea. On 05/04/2021 patient seen in follow-up on medical surgical floor, she is curr ently on room air, she is resting comfortably in bed, her pulse ox is 91%, overall her oxygenation seems to be improving. Afebrile. Hemodynamically patient has remained stable, some shortness of breath with activity, appetite is still poor, but tolerating oral intake, no nausea vomiting or diarrhea. His labs have been reviewed, d-dimer is 1.33, CRP is improving and is down to 1.7, LDH level is pending, pro calcitonin level was negative. Overall has remained stable, she continues on Decadron 6 mg daily, Lovenox 40 mg daily, multivitamins, this had no acute events overnight. on today's evaluation of 05/05/2021, the patient is doing well and she is only on 2 L of oxygen by nasal cannula. She was placed on room air oxygen and with activity she started desaturating and she may be able to go home along with her home oxygen concentrator. Limited cough which is a dry cough. No significant sputum production. No nausea vomiting or diarrhea. The patient remains on Decadron. She remains on Lovenox 40 mg subcu for DVT prophylaxis.on her blood work today, d-dimer is down to 0.8. The patient's CRP level down to 1.6. Troponins were negative. Pro-calcitonin level was negative.LDH level at time of admission was 791. Is a case of mild Covid 19 pneumonia and the patient is clinically improved. Objective - Vital Signs Vital signs: Vital Signs Temp 97.5 F L 05/05/21 10:00 Pulse 58 L 05/05/21 10:00 Resp 17 05/05/21 10:00 BP 118/71 05/05/21 10:00 Pulse Ox 85 L 05/05/21 11:05 Intake & Output 05/04/21 05/05/21 05/05/21 18:59 06:59 18:59 Intake Total 1140 Balance 1140 Weight 84.822 kg Intake: IV 600 Sodium Chloride 0.9% 1, 600 000 ml @ 50 mls/hr IV . Q20H SINDI Rx#:[id number] Oral 540 Other: Voiding Method Toilet Toilet # Voids 2 1 - Exam GENERAL EXAM: Alert, very pleasant 65-year-old white female, on room air with the pulse ox of 93-97% comfortable in no apparent distress. HEAD: Normocephalic/atraumatic. EYES: Normal reaction of pupils, equal size. Conjunctiva pink, sclera white. NOSE: Clear with pink turbinates. THROAT: No erythema or exudates. NECK: No masses, no JVD, no thyroid enlargement, no adenopathy. CHEST: No chest wall deformity. Symmetrical expansion. LUNGS: Equal air entry with bibasilar crackles CVS: Regular rate and rhythm, normal S1 and S2, no gallops, no murmurs, no rubs ABDOMEN: Soft, nontender. No hepatosplenomegaly, normal bowel sounds, no guarding or rigidity. EXTREMITIES: No clubbing, no edema, no cyanosis, 2+ pulses and upper and lower extremities. MUSCULOSKELETAL: Muscle strength and tone normal. SPINE: No scoliosis or deformity SKIN: No rashes CENTRAL NERVOUS SYSTEM: Alert and oriented -3. No focal deficits, tone is normal in all 4 extremities. PSYCHIATRIC: Alert and oriented -3. Appropriate affect. Intact judgment and insight. - Labs CBC & Chem 7: 04/30/21 08:53 05/01/21 07:36 Labs: Abnormal Lab Results - Last 24 Hours (Table) 05/05/21 05/05/21 Range/Units 06:24 06:24 D-Dimer 0.82 H (<0.60) mg/L FEU C-Reactive Protein 1.6 H (<1.0) mg/dL Assessment and Plan Plan: 1 acute hypoxic respiratory failure secondary COVID 19 related to pneumonia. The patient is currently on room air oxygen. Nevertheless, with activity, the patient desaturated sent for that reason she will need home O2. 2 acute COVID 19 related pneumonia. The patient was diagnosed having an infec tion on outpatient basis on 04/24/2020. The patient was symptomatically prior to that her symptoms started approximately around New Year's. The patient is currently on Decadron. The patient is also at the window for Remdesivir treatment. This patient is not vaccinated. 3 mild elevation of the inflammatory markers secondary to above 4 shortness of breath secondary to above 5 history of renal cell carcinoma the patient undergone previous right nephrectomy 6 history of Graves' disease 7 history of migraines 8 history of osteoarthritis Plan arrange the patient at homeome concentrator. Continue Decadron, completed the course of Decadron for a total of 10 days. clinically improved. Inflammatory markers are in generally low Continue multivitamins discharge the patient home today to be followed up on outpatient basis. Resume all medications.
--- NOTE | 2021-05-05 20:07 | P.DS ---
Providers Date of admission: 04/29/21 00:23 Expected date of discharge: 05/05/21 Attending physician: Dakotah Borges Consults: 05/01/21 21:48 Consult Physician Routine Consulting Provider: Alli Adames Consult Reason/Comments: COVID 19 Do you want consulting provider notified?: Yes Primary care physician: Cyndie Schneider [facility] Course: Chief Complaint: Weak and tired This is a pleasant 65-year-old patient who follows with Dr. Birch. Chronic stable medical condition includes osteoarthritis, migraines, right kidney cancer with nephrectomy, urinary incontinence, Graves' disease. Patient started off with diarrhea last Saturday. Averaging about 4-5 per day. Appetite poor. Had some headache. No loss of smell or taste. She progressively got worse. Not even able to get out of bed. Short of breath with activity. Tested positive for COVID-19. No fever no chills. Tired rundown April 30: Tired. Had about 3-4 BMs since last 24 hours. Has been having some soups. On 3 L of nasal cannula. Did sit up in a chair. May 01: Patient earlier admitted to be sort of chest pain. She went to the bathroom without using her oxygen. [place] better after oxygen was replaced. I ordered EKG, troponin I, 2-D echo and cardiology consultation. No further episode. Eating about 25-50%. IV fluids. On 4 L of nasal cannula. Diarrhea resolved. Patient improved slowly. Appetite started improving. Oxygen requirement coming down. May 05: Patient 93% on room air 85% with activity. Home oxygen being arranged. Activity incentive spirometry breathing exercises discussed with the patient. COVID vaccinations last booster discussed. Questions answered. Was discharged on xarelto for DVT prophylaxis and prednisone taper. Discussion and discharge planning more than 35 minutes Consultation: Dr. Adames from pulmonary On examination: VITAL SIGNS: 97.5, 58, 17, 118/71, 93% on room air 85% with activity GENERAL APPEARANCE: Reclining in chair, awake RESPIRATORY: Respiratory effort increased.. PSYCHIATRY: Alert and oriented x3. Mood and affect normal. NEUROLOGICAL: Cranial nerves grossly intact. Moving all 4 limbs Rest of exam per nursing and cardiology INVESTIGATIONS, reviewed in the clinical context: May 05: D-dimer 0.82 CRP 1.6 Troponin I 3 negative Limited 2-D echocardiogram: EF 55-60%. Moderate tricuspid regurgitation. Rcbn-da-rumlicni mitral regurgitation. April 30: White count 10.5 hemoglobin 13.1 potassium 3.8 creatinine 0.82 CRP 2.7 d-dimer 0.49 White count 6.3 hemoglobin 15 platelets 175 decreased lymphocyte sodium 132 potassium 3.7 creatinine 1.01 AST 58 ALT 36 CRP 5.9 EKG tracing personally reviewed by me-normal sinus rhythm. ST segment depression. Chest x-ray film personally reviewed by me-peripheral infiltrate Assessment and plan: -Acute COVID 19 pneumonitis symptoms starting about 7 days right admission: Better Vitamin C, vitamin D, zinc. Subcu Lovenox. Discharged on xarelto -Mild hypoxic respiratory failure. Patient's pulse ox did drop down to 92%: Better Dexamethasone 6 mg a day. 3 L nasal cannula. Pulmonary. Discharged on home oxygen. Prednisone taper. -Acute medical asthenia from diarrhea: Better IV fluids -Acute diarrhea secondary to COVID-19: Improved Imodium when necessary. Metamucil -Hyponatremia from decreased solute intake: Better Encourage oral intake. Add Ensure -Primary osteoarthritis Tylenol as needed -Chronic urinary stress incontinence -Right nephrectomy with a history of kidney cancer Disposition: Home Patient Condition at Discharge: Fair Plan - Discharge Summary Discharge Rx Participant: Yes New Discharge Prescriptions: New Zinc Sulfate [Orazinc] 220 mg PO DAILY #30 cap Ascorbic Acid [Vitamin C] 1,000 mg PO DAILY #60 tab Rivaroxaban [Xarelto] 10 mg PO DAILY #30 tab Cholecalciferol [Vitamin D3 (125 Mcg = 5000 Iu)] 125 mcg PO DAILY #30 tablet Discontinued ondansetron HCL [Zofran] 8 mg PO TID PRN PRN Reason: Nausea Discharge Medication List Ascorbic Acid [Vitamin C] 1,000 mg PO DAILY #60 tab 05/05/21 [Rx] Cholecalciferol [Vitamin D3 (125 Mcg = 5000 Iu)] 125 mcg PO DAILY #30 tablet 05/05/21 [Rx] Rivaroxaban [Xarelto] 10 mg PO DAILY #30 tab 05/05/21 [Rx] Zinc Sulfate [Orazinc] 220 mg PO DAILY #30 cap 05/05/21 [Rx] Follow up Appointment(s)/Referral(s): [facility] [NON-STAFF] - As Needed (oxygen) Cyndie Vee DO [Primary Care Provider] - 05/11/21 2:45 pm Samuel Davalos MD [STAFF PHYSICIAN] - 05/22/21 3:15 pm ([facility]. [address] [place], [place] [address]. [facility] [place], [place]) Alli Adames MD [STAFF PHYSICIAN] - 06/14/21 2:30 pm Patient Instructions/Handouts: Coronavirus Disease 2019 (COVID-19)
== END 2021-05-05 16:34 | disposition home or self-care (01) | DRG 177 ==
LOC: EC 19:59 → 4SSUR 04-29 00:23
PROVIDERS: ADMIT Hospitalist; ATTEND Hospitalist
DX: U07.1 COVID-19 (principal); J12.82 Pneumonia due to coronavirus disease 2019; J96.01 Acute respiratory failure with hypoxia; E87.1 Hypo-osmolality and hyponatremia; E05.00 Thyrotoxicosis with diffuse goiter without thyrotoxic crisis or storm; E86.0 Dehydration; G43.909 Migraine, unspecified, not intractable, without status migrainosus; I08.1 Rheumatic disorders of both mitral and tricuspid valves; I27.21 Secondary pulmonary arterial hypertension; M19.91 Primary osteoarthritis, unspecified site; M81.0 Age-related osteoporosis without current pathological fracture; N39.3 Stress incontinence (female) (male); Z85.528 Personal history of other malignant neoplasm of kidney; Z87.891 Personal history of nicotine dependence; Z90.5 Acquired absence of kidney; Z90.710 Acquired absence of both cervix and uterus; R63.0 Anorexia; R19.7 Diarrhea, unspecified; R53.81 Other malaise; R11.2 Nausea with vomiting, unspecified
CPT/HCPCS: 36415; 71045; 80048; 80053; 83615; 83735; 84145; 84484; 85025; 85379; 85610; 85730; 86140; 93005; 93308; 94760; 96361; 96374; 96375; 99285